=== PATIENT | female | born 1940 | race Two or more races ===

== ENCOUNTER → 2017-11-18 09:58 | Outpatient (CLI) | payer OTHER | END | disposition home or self-care (01) | LOC: LAB 09:58 | DX: R10.2 Pelvic and perineal pain (principal); Z51.81 Encounter for therapeutic drug level monitoring ==

== ENCOUNTER 2017-11-19 09:35 | Outpatient (CLI) | payer OTHER | END 2017-11-19 11:44 | disposition home or self-care (01) | LOC: TOM 09:35 | DX: R10.2 Pelvic and perineal pain (principal); K57.30 Diverticulosis of large intestine without perforation or abscess without bleeding ==

== ENCOUNTER 2018-10-01 19:43 | Emergency (ER) | payer OTHER ==
[~2018-10-01] VITALS: Ht 162.6 cm; Wt 71.7 kg
== END 2018-10-01 22:17 | disposition home or self-care (01) ==
LOC: ER 19:43
DX: S01.82XA Laceration with foreign body of other part of head, initial encounter (principal); F10.129 Alcohol abuse with intoxication, unspecified; W45.8XXA Other foreign body or object entering through skin, initial encounter; Y93.89 Activity, other specified; Y92.413 State road as the place of occurrence of the external cause; Y99.8 Other external cause status

== ENCOUNTER 2018-10-08 11:20 | Emergency (ER) | payer OTHER ==
[~2018-10-08] VITALS: Ht 162.6 cm; Wt 71.7 kg
[2018-10-08] MEDS ORDERED: LIPITOR20 MG PO (11:51)
[2018-10-08] MEDS ORDERED: LOTREL 5-20 MG1 CAP PO (11:51)
[2018-10-08] MEDS ORDERED: LEXAPRO5 MG PO (11:52)
[2018-10-08] MEDS ORDERED: ZETIA10 MG PO (11:52)
[2018-10-08] MEDS ORDERED: PROMETRIUM200 MG (11:53)
== END 2018-10-08 14:01 | disposition home or self-care (01) ==
LOC: ER 11:20
DX: Z48.02 Encounter for removal of sutures (principal)

== ENCOUNTER 2021-04-18 08:50 | Outpatient (CLI) | payer OTHER ==
[~2021-04-18 08:50] MED LIST: LEXAPRO5 MG PO; LIPITOR20 MG PO; LOTREL 5-20 MG1 CAP PO; PROMETRIUM200 MG; ZETIA10 MG PO
== END 2021-04-19 15:19 | disposition home or self-care (01) ==
LOC: MRI 08:50
PROVIDERS: ATTEND Psychiatry & Neurology Neurology
DX: G93.0 Cerebral cysts (principal)
CPT/HCPCS: 70551

== ENCOUNTER 2023-10-16 07:22 | Outpatient (CLI) | payer OTHER ==
[2023-10-16 08:31] LABS: CREATININE SERUM 1.61 mg/dL (0.55-1.02)
== END 2023-10-16 14:20 | disposition home or self-care (01) ==
LOC: LAB 07:22
PROVIDERS: ATTEND Radiology Diagnostic Radiology
DX: R11.0 Nausea (principal)

== ENCOUNTER 2023-10-16 08:05 | Outpatient (CLI) | payer OTHER | END 2023-10-16 08:30 | disposition home or self-care (01) | LOC: TOM 08:05 | PROVIDERS: ATTEND Internal Medicine Gastroenterology | DX: R11.0 Nausea (principal); K21.00 Gastro-esophageal reflux disease with esophagitis, without bleeding; R19.6 Halitosis; K57.10 Diverticulosis of small intestine without perforation or abscess without bleeding; R10.13 Epigastric pain | CPT/HCPCS: 74177; Q9965 ==

== ENCOUNTER 2023-12-11 17:46 | Emergency (ER) | payer OTHER ==
[~2023-12-11] VITALS: Ht 165.1 cm; Wt 68.0 kg
[2023-12-11] MEDS ORDERED: NORVASC2.5 M1 (18:00)
[2023-12-11] MEDS ORDERED: INDERAL LA80 MG (18:00)
[2023-12-11] MEDS ORDERED: LIPITOR40 MG (18:01)
[2023-12-11 19:24] LABS: HEMATOCRIT 36.6 % (36.0-45.00); HEMOGLOBIN 12.4 g/dL (12.0-15.00); MEAN CELL VOLUME 87.6 fL (80.00-100.00); MEAN CORPUSCULAR HEMOGLOBIN 29.8 pg (27.00-32.0); PLATELET COUNT 286 K/uL (150-450); RED BLOOD COUNT 4.17 M/uL (4.00-6.00); RED CELL DISTRIBUTION WIDTH 14.3 % (11.5-14.5)
[2023-12-11 19:40] LABS: BILIRUBIN TOTAL 0.22 mg/dL (0.3-1.2); CALCIUM 9.7 mg/dL (8.5-10.1); CREATININE SERUM 0.91 mg/dL (0.55-1.02); GFR 59.33; GLOBULINA 3.5 G/DL (2.4-3.5); POTASSIUM 3.67 mEq/L (3.5-5.1); TOTAL PROTEIN 7.5 gm/dL (6.4-8.2)
== END 2023-12-12 00:21 | disposition home or self-care (01) ==
LOC: ER 17:46
PROVIDERS: Emergency Medicine
DX: S00.93XA Contusion of unspecified part of head, initial encounter (principal); W18.39XA Other fall on same level, initial encounter; Y93.89 Activity, other specified; Y92.511 Restaurant or cafe as the place of occurrence of the external cause; Y99.9 Unspecified external cause status; R55 Syncope and collapse; F10.129 Alcohol abuse with intoxication, unspecified; I10 Essential (primary) hypertension

== ENCOUNTER 2023-12-19 10:25 | Emergency (ER) | payer OTHER ==
[~2023-12-19] VITALS: Ht 162.6 cm; Wt 70.8 kg
[~2023-12-19 10:25] MED LIST changes: +INDERAL LA80 MG; +LIPITOR40 MG; +NORVASC2.5 M1
[2023-12-19] MEDS ORDERED: ZETIA10 MG PO (10:55)
[2023-12-19] MEDS ORDERED: LIPITOR20 MG PO (10:55)
[2023-12-19] MEDS ORDERED: LEVOXYL75 MCG PO (10:55)
[2023-12-19] MEDS ORDERED: REMINYL8 MG PO (10:56)
[2023-12-19] MEDS ORDERED: LOTENSIN20 MG PO (10:57)
== END 2023-12-19 11:46 | disposition home or self-care (01) ==
LOC: ER 10:27
DX: Z48.02 Encounter for removal of sutures (principal)

== ENCOUNTER 2023-12-24 15:44 | Emergency (ER) | payer OTHER ==
[~2023-12-24] VITALS: Ht 162.6 cm; Wt 70.8 kg
[~2023-12-24 15:44] MED LIST changes: +LEVOXYL75 MCG PO; +LOTENSIN20 MG PO; +REMINYL8 MG PO
== END 2023-12-24 17:15 ==
LOC: ER 15:44
DX: Z48.02 Encounter for removal of sutures (principal)

== ENCOUNTER 2024-11-02 09:39 | Outpatient (CLI) | payer OTHER | END 2024-11-02 09:44 | disposition home or self-care (01) | LOC: MRI 09:39 | PROVIDERS: ATTEND Psychiatry & Neurology Neurology | DX: G30.1 Alzheimer's disease with late onset (principal) | CPT/HCPCS: 70551 ==